=== PATIENT | female | born 1935 | race Hispanic/Latino ===

== ENCOUNTER → 2017-09-17 | Outpatient (CLI) | payer OTHER, MEDICARE | END | disposition home or self-care (01) | LOC: RAH 13:51 | PROVIDERS: ATTEND Internal Medicine | DX: M81.0 Age-related osteoporosis without current pathological fracture (principal); M47.896 Other spondylosis, lumbar region; M19.042 Primary osteoarthritis, left hand; M19.041 Primary osteoarthritis, right hand; M05.89 Other rheumatoid arthritis with rheumatoid factor of multiple sites | CPT/HCPCS: 72100; 73120 ==